=== PATIENT | male | born 1960 | race Caucasian/White ===

== ENCOUNTER 2017-07-02 18:25 | Emergency (ER) | payer MEDICAID ==
[~2017-07-02] VITALS: Ht 175.3 cm; Wt 75.0 kg
[~2017-07-02 18:25] MED LIST: METF500T4 PO
[2017-07-02] MEDS ORDERED: TRAZ-129 (18:33)
[2017-07-02] MEDS ORDERED: GLIP5TAB12 (18:33)
[2017-07-02] MEDS ORDERED: SITA100T6 (18:33)
[2017-07-02] MEDS ORDERED: ESCI20TA36 (18:33)
[2017-07-02] MEDS ORDERED: ACETAMINOPHEN 325MG TABLET PO ONE (18:45)
[2017-07-02 19:10] LABS: CLARITY URINE CLEAR (CLEAR); COLOR URINE YELLOW (YELLOW); GLUCOSE URINE 3+ (NEGATIVE); KETONES URINE NEGATIVE (NEGATIVE); LEUKOCYTE ESTERASE URINE NEGATIVE (NEGATIVE); NITRITE URINE NEGATIVE (NEGATIVE); OCCULT BLOOD URINE NEGATIVE (NEGATIVE); PROTEIN URINE NEGATIVE (NEGATIVE); SPECIFIC GRAVITY URINE 1.039 (1.005-1.030); UROBILINOGEN URINE 0.2 E.U./dL (0.2-1.0)
[2017-07-02 19:21] LABS: *AMPHETAMINES SCREEN URINE NEGATIVE (NEGATIVE); *BARBITURATES SCREEN URINE NEGATIVE (NEGATIVE); *BENZODIAZEPINES SCREEN URINE NEGATIVE (NEGATIVE); *COCAINE SCREEN URINE NEGATIVE (NEGATIVE); CANNABINOID URINE SCREEN NEGATIVE (NEGATIVE); METHADONE URINE SCREEN NEGATIVE (NEGATIVE); OPIATES URINE SCREEN NEGATIVE (NEGATIVE); PHENCYCLIDINE URINE SCREEN NEGATIVE (NEGATIVE)
[2017-07-03 00:18] VITALS: BP 128/64
== END 2017-07-03 00:19 | disposition home or self-care (01) ==
LOC: ER 20:46
DX: S05.12XA Contusion of eyeball and orbital tissues, left eye, initial encounter (principal); E11.9 Type 2 diabetes mellitus without complications; M79.89 Other specified soft tissue disorders; F17.200 Nicotine dependence, unspecified, uncomplicated; V49.88XA Car occupant (driver) (passenger) injured in other specified transport accidents, initial encounter; Y93.89 Activity, other specified; Y92.89 Other specified places as the place of occurrence of the external cause; Y99.8 Other external cause status
CPT/HCPCS: 70450; 70486; 71010; 80305; 81001; 99285; Z7610

== ENCOUNTER 2020-12-14 15:47 | Emergency (ER) | payer MEDICAID ==
[~2020-12-14] VITALS: Ht 172.7 cm; Wt 73.0 kg
[~2020-12-14 15:47] MED LIST changes: +ESCI20TA47; +GLIP5TAB12; +METF-414 PO; -METF500T4 PO; +SITA100T11; +TRAZ-251
[2020-12-14] MEDS ORDERED: ONDANSETRON HCL 4MG/2ML INJ IV STA (16:44)
[2020-12-14] MEDS ORDERED: SODIUM CHLORIDE 0.9% 1,000 ML IV ONE (16:45)
[2020-12-14] MEDS ORDERED: VISCOUS LIDOCAINE 2% 15 ML UDC PO ONE (16:45)
[2020-12-14] MEDS ORDERED: MAGNESIUM/ALUMINUM HYDROXIDE/SIMETHICONE 30ML UDC PO ONE (16:45)
[2020-12-14] MEDS ORDERED: FAMOTIDINE 20MG/2ML VIAL IV ONE (16:45)
[2020-12-14 17:44] LABS: BASOPHILS % 0.2 % (0.0-2.0); EOSINOPHILS % 0.2 % (0.0-5.0); HEMATOCRIT. 49.5 % (42.0-52.0); HEMOGLOBIN. 16.5 g/dL (14.0-18.0); LYMPHOCYTES % 22.3 % (20.0-50.0); MEAN CORPUSCULAR HEMOGLOBIN 28.1 pg (28.0-32.0); MEAN CORPUSCULAR VOLUME 84.1 fL (80.0-94.0); MEAN PLATELET VOLUME 8.5 fl (7.4-10.4); MONOCYTES % 6.2 % (2.0-8.0); NEUTROPHILS % 71.1 % (40.0-76.0); PLATELET 237 x1000/uL (130-400); RED BLOOD CELL COUNT 5.88 mill/uL (4.7-6.1); RED CELL DISTRIBUTION WIDTH 13.4 % (11.6-14.6)
[2020-12-14 17:49] LABS: CHLORIDE 97 mEq/L (98-107)
[2020-12-14 20:45] VITALS: BP 158/84
== END 2020-12-14 21:00 | disposition home or self-care (01) ==
LOC: ER 15:47
DX: K29.70 Gastritis, unspecified, without bleeding (principal); E11.65 Type 2 diabetes mellitus with hyperglycemia; F32.9 Major depressive disorder, single episode, unspecified; F17.210 Nicotine dependence, cigarettes, uncomplicated; Z71.6 Tobacco abuse counseling; Z98.890 Other specified postprocedural states; Z87.19 Personal history of other diseases of the digestive system; Z79.84 Long term (current) use of oral hypoglycemic drugs
CPT/HCPCS: 36415; 71045; 80053; 83690; 84484; 85025; 93005; 96361; 96374; 96375; 99285; 99406; J2405; J3490; J7030; Z7610

== ENCOUNTER 2020-12-17 09:02 | Emergency (ER) | payer MEDICAID ==
[~2020-12-17] VITALS: Ht 172.7 cm; Wt 78.0 kg
[2020-12-17 11:13] LABS: BASOPHILS % 0.3 % (0.0-2.0); EOSINOPHILS % 0.2 % (0.0-5.0); HEMATOCRIT. 46.6 % (42.0-52.0); HEMOGLOBIN. 15.8 g/dL (14.0-18.0); LYMPHOCYTES % 25.2 % (20.0-50.0); MEAN CORPUSCULAR HEMOGLOBIN 28.3 pg (28.0-32.0); MEAN CORPUSCULAR VOLUME 83.5 fL (80.0-94.0); MEAN PLATELET VOLUME 8.4 fl (7.4-10.4); MONOCYTES % 7.8 % (2.0-8.0); NEUTROPHILS % 66.5 % (40.0-76.0); PLATELET 198 x1000/uL (130-400); RED BLOOD CELL COUNT 5.58 mill/uL (4.7-6.1); RED CELL DISTRIBUTION WIDTH 13.2 % (11.6-14.6)
[2020-12-17 11:21] LABS: CHLORIDE 103 mEq/L (98-107)
[2020-12-17 11:23] LABS: INR 1.1; PROTHROMBIN TIME 11.5 sec (9.6-11.0)
[2020-12-17] MEDS: SODIUM CHLORIDE 0.9% 1,000 ML IV ONE (11:32)
[2020-12-17] MEDS: DICYCLOMINE 10 MG/5 ML ORAL SYR PO STA (11:32)
[2020-12-17] MEDS: VISCOUS LIDOCAINE 2% 15 ML UDC PO STA (11:32)
[2020-12-17] MEDS: MAGNESIUM/ALUMINUM HYDROXIDE/SIMETHICONE 30ML UDC PO STA (11:32)
[2020-12-17] MEDS: ONDANSETRON HCL 4MG/2ML INJ IV STA (11:32)
[2020-12-17 14:10] VITALS: BP 144/83
[2020-12-17] MEDS ORDERED: METO10TA3 MT (14:12)
== END 2020-12-17 14:45 | disposition home or self-care (01) ==
LOC: ER 09:19
DX: R10.13 Epigastric pain (principal); E11.65 Type 2 diabetes mellitus with hyperglycemia; Z98.890 Other specified postprocedural states; Z79.899 Other long term (current) drug therapy
CPT/HCPCS: 36415; 76700; 80053; 82962; 83690; 85025; 85610; 93005; 93970; 96374; 99285; J2405; J7030

== ENCOUNTER 2021-08-03 19:37 | Emergency (ER) | payer MEDICAID ==
[~2021-08-03] VITALS: Ht 172.7 cm; Wt 77.0 kg
[~2021-08-03 19:37] MED LIST changes: +ESCI20TA37; -ESCI20TA47; +METO10TA3 MT
[2021-08-03 20:29] LABS: BASOPHILS % 0.2 % (0.0-2.0); EOSINOPHILS % 0.4 % (0.0-5.0); HEMATOCRIT. 45.1 % (42.0-52.0); HEMOGLOBIN. 15.9 g/dL (14.0-18.0); LYMPHOCYTES % 30.8 % (20.0-50.0); MEAN CORPUSCULAR VOLUME 82.5 fL (80.0-94.0); MEAN PLATELET VOLUME 7.9 fl (7.4-10.4); MONOCYTES % 8.4 % (2.0-8.0); NEUTROPHILS % 60.2 % (40.0-76.0); PLATELET 217 x1000/uL (130-400); RED BLOOD CELL COUNT 5.46 mill/uL (4.7-6.1); RED CELL DISTRIBUTION WIDTH 13.1 % (11.6-14.6)
[2021-08-03 20:30] LABS: CHLORIDE 96 mEq/L (98-107)
[2021-08-03] MEDS ORDERED: SODIUM CHLORIDE 0.9% 1,000 ML IV ONE ×2 (20:30→23:30)
[2021-08-03] MEDS ORDERED: ONDANSETRON HCL 4MG/2ML INJ IV ONE (20:30)
[2021-08-03 21:13] LABS: CLARITY URINE CLEAR (CLEAR); COLOR URINE YELLOW (YELLOW); KETONES URINE 3+ (NEGATIVE); LEUKOCYTE ESTERASE URINE NEGATIVE (NEGATIVE); NITRITE URINE NEGATIVE (NEGATIVE); OCCULT BLOOD URINE NEGATIVE (NEGATIVE); PH URINE 5.5 (4.5-8.0); PROTEIN URINE TRACE (NEGATIVE); SPECIFIC GRAVITY URINE 1.042 (1.005-1.030)
[2021-08-03 21:37] LABS: *AMPHETAMINES SCREEN URINE NEGATIVE (NEGATIVE); *BARBITURATES SCREEN URINE NEGATIVE (NEGATIVE); *BENZODIAZEPINES SCREEN URINE NEGATIVE (NEGATIVE); *COCAINE SCREEN URINE NEGATIVE (NEGATIVE); METHADONE URINE SCREEN NEGATIVE (NEGATIVE)
[2021-08-03 21:38] LABS: CANNABINOID URINE SCREEN NEGATIVE (NEGATIVE); OPIATES URINE SCREEN NEGATIVE (NEGATIVE); PHENCYCLIDINE URINE SCREEN NEGATIVE (NEGATIVE)
[2021-08-03] MEDS ORDERED: METOCLOPRAMIDE HCL 10MG/2ML VIAL IV ONE (23:30)
[2021-08-04 01:20] VITALS: BP 150/85
== END 2021-08-04 01:37 | disposition home or self-care (01) ==
LOC: ER 19:37
DX: R11.2 Nausea with vomiting, unspecified (principal); K90.49 Malabsorption due to intolerance, not elsewhere classified; E10.65 Type 1 diabetes mellitus with hyperglycemia; Z98.890 Other specified postprocedural states; Z79.4 Long term (current) use of insulin
CPT/HCPCS: 36415; 71045; 80053; 80305; 81003; 83605; 83690; 83880; 84484; 85025; 93005; 96361; 96374; 96375; 99285; J2405; J2765; J7030

== ENCOUNTER 2023-04-26 12:26 | Emergency (ER) | payer MEDICAID, OTHER ==
[~2023-04-26] VITALS: Ht 172.7 cm; Wt 78.0 kg
[2023-04-26 12:38] VITALS: BP 139/88
[2023-04-26] MEDS ORDERED: IBUP-2028 MT (14:25)
[2023-04-26] MEDS ORDERED: OFLO5DRO4 LEFT EAR (14:25)
== END 2023-04-26 14:47 | disposition home or self-care (01) ==
LOC: ER 12:26
DX: H60.92 Unspecified otitis externa, left ear (principal); E11.9 Type 2 diabetes mellitus without complications; Z79.899 Other long term (current) drug therapy
CPT/HCPCS: 99283

== ENCOUNTER 2023-10-07 12:45 | Emergency (ER) | payer MEDICAID ==
[~2023-10-07] VITALS: Ht 175.3 cm; Wt 78.0 kg
[~2023-10-07 12:45] MED LIST changes: -GLIP5TAB12; +GLIP5TAB22; +IBUP-2028 MT; +OFLO5DRO4 LEFT EAR
[2023-10-07 12:55] VITALS: O2SAT 100
[2023-10-07 14:03] VITALS: BP 140/91; PULSE 82; RESP 18; TEMP 98.2
== END 2023-10-07 14:05 | disposition home or self-care (01) ==
LOC: ER 12:45
DX: D23.5 Other benign neoplasm of skin of trunk (principal); E11.9 Type 2 diabetes mellitus without complications
CPT/HCPCS: 99281